=== PATIENT | male | born 1960 | race Caucasian/White ===

== ENCOUNTER 2018-11-28 07:35 | Day surgery (SDC) | payer OTHER ==
[2018-11-28] MEDS: LACTATED RINGER'S 1,000 ML IV (09:10)
[2018-11-28] MEDS ORDERED: MIDAZOLAM 1 MG/ML 2 ML INJ (10:18)
[2018-11-28] MEDS ORDERED: ONDANSETRON 4 MG INJ (10:21)
[2018-11-28] MEDS ORDERED: PROPOFOL 100 ML (10:21)
[2018-11-28] MEDS ORDERED: METOCLOPRAMIDE 10 MG INJ (10:21)
[2018-11-28] MEDS ORDERED: FENTAnyl 50 MCG/ML VIAL (10:21)
[2018-11-28] MEDS ORDERED: ONDANSETRON 4 MG INJ IV (10:30)
[2018-11-28] MEDS ORDERED: LABETALOL HCL 20MG INJ IV (10:30)
[2018-11-28] MEDS ORDERED: FENTAnyl 50 MCG/ML VIAL IV ×3 (10:30)
[2018-11-28] MEDS ORDERED: MEPERIDINE 25 MG INJ IV (10:30)
[2018-11-28] MEDS ORDERED: hydrALAzine 20 MG INJ IV (10:30)
[2018-11-28] MEDS ORDERED: HYDROmorphONE 1 MG/5 ML IV SYRINGE IV ×3 (10:30)
[2018-11-28] MEDS ORDERED: DIPHENHYDRAMINE 50 MG INJ IV (10:30)
[2018-11-28] MEDS: LIDOCAINE 1%/EPI 30 ML INJ ZFS (10:54)
[2018-11-28] MEDS: BACITRACIN/POLYMYXIN 0.9 GM OINT TOP (11:39)
[2018-11-28] MEDS: LIDOCAINE 1%/EPI (1:100,000) (MDV) 20 ML INJ (11:41)
[2018-11-28] MEDS ORDERED: BACITRACIN/POLYMYXIN 28.35 GM OINT TOP (12:13)
== END 2018-11-28 12:45 | disposition home or self-care (01) ==
LOC: SDS 07:35
DX: C44.219 Basal cell carcinoma of skin of left ear and external auricular canal (principal); I10 Essential (primary) hypertension; E11.9 Type 2 diabetes mellitus without complications; E78.5 Hyperlipidemia, unspecified; I11.0 Hypertensive heart disease with heart failure; I50.9 Heart failure, unspecified; Z95.810 Presence of automatic (implantable) cardiac defibrillator; I69.320 Aphasia following cerebral infarction; Z79.01 Long term (current) use of anticoagulants
CPT/HCPCS: 11646; 88304